=== PATIENT | female | born 2000 | race Two or more races ===

== ENCOUNTER 2021-02-16 08:00 | Outpatient (CLI) | payer OTHER | END 2021-02-16 08:30 | disposition home or self-care (01) | LOC: PPH VACUNA 08:00 | PROVIDERS: ATTEND Emergency Medicine Pediatric Emergency Medicine | DX: Z23 Encounter for immunization (principal) ==

== ENCOUNTER 2023-06-01 10:40 | Outpatient (CLI) | payer OTHER ==
[~2023-06-01 10:40] MED LIST: CIPROFLOXACIN2.5 ML OTIC
== END 2023-06-01 10:50 | disposition home or self-care (01) ==
LOC: PPH VACUNA 10:40
PROVIDERS: ATTEND Emergency Medicine Pediatric Emergency Medicine
DX: Z23 Encounter for immunization (principal)
CPT/HCPCS: 90653; G0008